=== PATIENT | female | born 1995 | race Caucasian/White ===

== ENCOUNTER 2023-11-08 05:07 | Day surgery (SDC) | payer OTHER ==
[~2023-11-08] VITALS: Ht 162.6 cm; Wt 122.5 kg
[2023-11-08] MEDS ORDERED: fentaNYL citrate 0.05 MG/ML VIAL ONE (07:16)
[2023-11-08] MEDS ORDERED: MIDAZOLAM 2 MG/2 ML VIAL ONE (07:16)
[2023-11-08] MEDS ORDERED: PROPOFOL 200 MG/20 ML VIAL IV ONE (07:17)
[2023-11-08] MEDS ORDERED: ROCURONIUM 50 MG/5 ML VIAL IV ONE ×2 (07:17→08:31)
[2023-11-08] MEDS ORDERED: DEXAMETHASONE 4 MG/ML VIAL ONE (07:17)
[2023-11-08] MEDS ORDERED: SUCCINYLCHOLINE CHLORIDE 200 MG/10 ML VIAL IVP ONE (07:17)
[2023-11-08] MEDS ORDERED: ONDANSETRON 4 MG/2 ML VIAL ONE (07:17)
[2023-11-08] MEDS ORDERED: ONDANSETRON 4 MG/2 ML VIAL IVP PRN (07:30)
[2023-11-08] MEDS ORDERED: HYDROmorphone 1 MG/ML AMP IVP PRN (07:30)
[2023-11-08] MEDS ORDERED: BLOOD GLUCOSE MONITORING 1 DEV DEV FS SCH (07:30)
[2023-11-08] MEDS ORDERED: LACTATED RINGERS 1,000 ML IV SCH (07:30)
[2023-11-08] MEDS ORDERED: ESMOLOL 10 ML IV ONE (07:58)
[2023-11-08] MEDS: LIDOCAINE/EPI 1% 1:100000 20 ML VIAL INJ ONE (08:15)
[2023-11-08] MEDS: BUPIVACAINE MPF 0.25% 10 ML VIAL INJ ONE (08:15)
[2023-11-08] MEDS ORDERED: GLYCOPYRROLATE 0.2 MG/ML VIAL ONE ×2 (09:09)
[2023-11-08] MEDS ORDERED: NEOSTIGMINE 1:1000 10 MG/10 ML VIAL ONE (09:09)
[2023-11-08] MEDS: MORPHINE SULFATE 4 MG/ML SYR ONE (09:53)
[2023-11-08] MEDS: KETOROLAC 30 MG/ML VIAL ONE (09:55)
[2023-11-08] MEDS ORDERED: ACETAMINOPHEN 100 ML IV ONE (10:06)
[2023-11-08] MEDS ORDERED: KETOROLAC 30 MG/ML VIAL IVP ONE (10:10)
[2023-11-08] MEDS ORDERED: ACETAMINOPHEN 100 ML IV PRN (10:10)
[2023-11-08] MEDS ORDERED: MORPHINE SULFATE 2 MG/ML SYR IM ONE (10:35)
[2023-11-08] MEDS: HYDROmorphone 1 MG/ML AMP IVP ONE ×2 (10:57→11:15)
== END 2023-11-08 12:36 | disposition home or self-care (01) ==
LOC: MDS 05:07 → MMU 06:31 → MDS 12:36
PROVIDERS: ATTEND Obstetrics & Gynecology
DX: N80.9 Endometriosis, unspecified (principal); N83.8 Other noninflammatory disorders of ovary, fallopian tube and broad ligament; R10.2 Pelvic and perineal pain; N94.6 Dysmenorrhea, unspecified; F41.9 Anxiety disorder, unspecified; E11.9 Type 2 diabetes mellitus without complications; E66.01 Morbid (severe) obesity due to excess calories; N94.0 Mittelschmerz; E03.9 Hypothyroidism, unspecified; Z79.899 Other long term (current) drug therapy
CPT/HCPCS: 58662; 82948; J0330; J1100; J1170; J1885; J2001; J2250; J2270; J2405; J2704; J2710; J3010; J3490; J7120

== ENCOUNTER 2024-02-06 09:32 | Emergency (ER) | payer OTHER ==
[~2024-02-06] VITALS: Ht 162.6 cm; Wt 119.3 kg
[2024-02-06 09:38] VITALS: BP 135/90; PULSE 101; RESP 20; TEMP 98.5; O2SAT 98
[2024-02-06] MEDS ORDERED: IBUP-2213 PO (10:17)
[2024-02-06] MEDS ORDERED: ACET-503 PO (10:17)
[2024-02-06] MEDS: KETOROLAC 60 MG/2 ML VIAL IM ONE (10:39)
[2024-02-06 10:53] VITALS: BP 135/90; PULSE 101; RESP 20; TEMP 98.5; O2SAT 98
== END 2024-02-06 10:53 | disposition home or self-care (01) ==
LOC: MED 09:32
DX: M54.50 Low back pain, unspecified (principal); E11.9 Type 2 diabetes mellitus without complications; Z79.1 Long term (current) use of non-steroidal anti-inflammatories (NSAID)
CPT/HCPCS: 81002; 81025; 96372; 99283; J1885

== ENCOUNTER 2024-02-11 15:52 | Emergency (ER) | payer OTHER ==
[~2024-02-11] VITALS: Ht 162.6 cm; Wt 117.9 kg
[~2024-02-11 15:52] MED LIST: ACET-503 PO; IBUP-2213 PO
[2024-02-11 16:08] VITALS: BP 115/74; PULSE 99; RESP 18; TEMP 97.6; O2SAT 99
[2024-02-11 17:28] LABS: BASOPHILS # (AUTO) 0.1 K/uL (0.00-0.22); BASOPHILS % (AUTO) 0.6 % (0.0-2.0); EOSINOPHILS # (AUTO) 0.5 K/uL (0-0.4); EOSINOPHILS % (AUTO) 5.1 % (0.0-4.0); HEMATOCRIT 44.4 % (36-48); HEMOGLOBIN 15.5 g/dL (12.0-16.0); LYMPHOCYTES % (AUTO) 32.4 % (20.5-51.1); MEAN CORPUSCULAR HEMOGLOBIN 30 pg (27-31); MEAN CORPUSCULAR HGB CONC 35 g/dL (33-37); MONOCYTES # (AUTO) 0.6 K/uL (0.8-1.0); MONOCYTES % (AUTO) 6.7 % (1.7-9.3); NEUTROPHILS # (AUTO) 5.1 K/uL (1.8-7.7); NEUTROPHILS % (AUTO) 55.2 % (42.2-75.2); PLATELET COUNT (AUTO) 378 K/uL (140-450); RED CELL DISTRIBUTION WIDTH 13.1 % (11.6-13.7); WHITE BLOOD COUNT (AUTO) 9.2 K/uL (4.8-10.8)
[2024-02-11] MEDS: KETOROLAC 30 MG/ML VIAL IVP ONE (17:35)
[2024-02-11 17:47] LABS: APPEARANCE,URINE SL CLOUDY (CLEAR); BILIRUBIN,URINE NEGATIVE (NEGATIVE); BLOOD, URINE NEGATIVE (NEGATIVE); COLOR,URINE YELLOW (YELLOW); LEUKOCYTE ESTERASE ,URINE NEGATIVE (NEGATIVE); NITRITE, URINE NEGATIVE (NEGATIVE); PROTEIN,URINE NEGATIVE (NEGATIVE); UGLUCOSE NEGATIVE (NEGATIVE); UROBILINOGEN,URINE 0.2 EU/dL (0.2 - 1)
[2024-02-11] MEDS: MORPHINE SULFATE 4 MG/ML SYR IVP ONE (17:49)
[2024-02-11 17:58] LABS: ALBUMIN 4.4 g/dL (3.4-5.0); ANION GAP 15.2 (8-16); CALCIUM 9.6 mg/dL (8.5-10.1); CARBON DIOXIDE 25.4 mmol/L (21-32); CREATININE 0.8 mg/dL (0.6-1.3); POTASSIUM 4.6 mmol/L (3.5-5.1); TOTAL BILIRUBIN 0.4 mg/dL (0.0-1.0); TOTAL PROTEIN, SERUM 8.6 g/dL (6.4-8.2)
[2024-02-11] MEDS ORDERED: MORPHINE SULFATE 4 MG/ML SYR ONE (18:29)
[2024-02-11] MEDS: HYDROmorphone PFS 2 MG/ML SYR IVP ONE ×2 (19:46→21:34)
[2024-02-11 20:01] VITALS: BP 141/81; PULSE 90; RESP 15
[2024-02-11 20:11] VITALS: O2SAT 99
== END 2024-02-11 21:29 | disposition short-term general hospital (02) ==
LOC: MED 15:52
DX: M48.061 Spinal stenosis, lumbar region without neurogenic claudication (principal); M54.50 Low back pain, unspecified; M79.662 Pain in left lower leg; E11.9 Type 2 diabetes mellitus without complications; Z79.4 Long term (current) use of insulin; Z79.899 Other long term (current) drug therapy
CPT/HCPCS: 36415; 74177; 80053; 81003; 81025; 83690; 85025; 96374; 96375; 96376; 99291; 99292; J1170; J1885; J2270; Q9967